=== PATIENT | male | born 1960 | race Caucasian/White ===

== ENCOUNTER → 2016-10-19 | Outpatient (CLI) | payer OTHER | END | disposition home or self-care (01) | LOC: CT 09:04 | DX: R91.1 Solitary pulmonary nodule (principal) ==

== ENCOUNTER → 2017-05-03 | Outpatient (CLI) | payer OTHER | END | disposition home or self-care (01) | LOC: RAD 10:36 | DX: M16.0 Bilateral primary osteoarthritis of hip (principal); M25.562 Pain in left knee; M25.561 Pain in right knee; J45.909 Unspecified asthma, uncomplicated; R06.02 Shortness of breath; F17.200 Nicotine dependence, unspecified, uncomplicated ==